=== PATIENT | female | born 1980 | race Caucasian/White ===

== ENCOUNTER 2020-06-06 18:45 | Emergency (ER) | payer OTHER, SELFPAY ==
[2020-06-06] VITALS (7 sets, daily range): BP systolic 128–163; BP diastolic 86–100; PULSE 57–61; RESP 18–26; TEMP 36.4; O2SAT 97–100
--- NOTE | ~2020-06-06 | CT_ITS ---
EXAMINATION: CT abdomen pelvis wo con EXAM DATE: 06/06/2020 19:46 INDICATION: Flank pain. TECHNIQUE: Spiral CT of the abdomen and pelvis was performed without contrast. Axial, coronal and sag ittal images were reviewed. The dose-length product (DLP) for this examination was 327.31 mGy-cm. T he exposure was tailored according to patient size (auto mA exposure control), and iterative reconstr uction (ASIR) was used as additional dose reduction technique. There is no prior study for compariso n. FINDINGS: Punctate bilateral nephrolithiasis. There is a 2 mm stone in the right ureterovesicular tammy ction with mild right hydronephrosis. The uterus is unremarkable. The bladder is unremarkable. Th e liver, spleen, adrenal glands and pancreas are unremarkable. Gallbladder is unremarkable. No bili cameron obstruction. There is no retroperitoneal or pelvic lymphadenopathy. Possible identification of an unremarkable appendix. No pericecal inflammation. The stomach and smal l bowel are unremarkable. There is expected amount of colonic stool. No free intraperitoneal gas. The heart is normal in size. There are no pericardial or pleural effusions. The lung bases are un remarkable. There are no osteoblastic or osteolytic lesions identified. IMPRESSION: 1. Right UVJ 2 mm stone, mild obstructive nephropathy. 2. Punctate bilateral nephrolithiasis. Reviewed, dictated and finalized at location A. JACK WORKER
--- NOTE | 2020-06-06 19:03 | ED.ABDPAIN ---
HPI - Abdominal Pain General Chief Complaint: Abdominal Pain Stated Complaint: back/flank pain Time Seen by Provider: 06/06/20 18:53 Source: patient and family Mode of arrival: ambulatory Limitations: no limitations History of Present Illness HPI narrative: Patient is a 39-year-old female who presents with acute onset of right flank pain with nausea vomiting noting sharp stabbing pain worse with any movement denies similar occurrence on arrival appears uncomfortable but in no distress patient attempted to take medication for her pain but vomited it back up Related Data Allergies Allergy/AdvReac Type Severity Reaction Status Date / Time No Known Allergies Unverified 06/06/20 19:16 Review of Systems Review of Systems: All systems reviewed & are unremarkable except as noted in HPI and below PMFSH Social History Social History (Updated 06/06/20 @ 19:03 by Peter Byrne PA-C) Smoking status: Never smoker Exam Narrative: Exam Narrative: GENERAL: Well-appearing, well-nourished, uncomfortable, and in no acute distress. HEAD: Normocephalic, atraumatic. EYES: PERRLA and EOMI. ENT: Nares clear, no rhinorrhea or epistaxis. Mucous membranes moist. CHEST: Clear to auscultation. No respiratory distress. No wheezes rales or rhonchi HEART: Regular rate and rhythm. No murmur heard. Normal peripheral pulses. ABDOMEN: Soft, nontender, nondistended EXTREMITIES: Normal range of motion. No edema. SKIN: Warm, dry, no rash. NEURO: No focal deficits. Alert and oriented x3. PSYCH: Normal mood and affect. Course Course Emergency Course: Patient evaluated in the emergency department found to have urolithiasis patient came in very uncomfortable with emesis pain is considerably better patient feels comfortable to go home patient with punctate urolithiasis distally felt that this is safe for passage at home will be given urology follow-up afebrile nontoxic-appearing no distress Vital Signs Vital signs: Vital Signs Temperature 97.5 F L 06/06/20 18:55 Pulse Rate 61 06/06/20 18:55 Respiratory Rate 26 H 06/06/20 18:55 Blood Pressure 163/100 H 06/06/20 18:55 Pulse Oximetry 100 06/06/20 18:55 Temperature 97.5 F L 06/06/20 18:55 Pulse Rate 61 06/06/20 18:55 Respiratory Rate 26 H 06/06/20 18:55 Blood Pressure 128/86 06/06/20 20:31 Pulse Oximetry 100 06/06/20 20:45 MDM - Abdominal Pain MDM Narrative Medical decision making narrative: Patient with urolithiasis addressed in the emergency department given hydration and pain medication with improvement of condition feels comfortable to go home will be followed on an outpatient basis Lab Data Result diagrams: 06/06/20 19:06 06/06/20 19:06 Labs: Lab Results 06/06/20 06/06/20 06/06/20 Range/Units 19:06 19:06 19:07 WBC 8.8 (4.5-10.0) K/mm3 RBC 4.18 L (4.2-5.4) M/mm3 Hgb 12.0 (12.0-15.0) g/dL Hct 36.4 L (37.0-47.0) % MCV 87.1 (80-100) fl MCH 28.7 (26-34) pg MCHC 33.0 (32-36) g/dl RDW 13.1 (11.5-14.5) % Plt Count 264 (150-375) k/mm3 MPV 9.5 (7.4-10.4) fl Immature Gran % (Auto) 0.2 (0-0.5) % Neut % (Auto) 53.8 (45.5-73.1) % Lymph % (Auto) 38.2 (18.3-44.2) % [place] % (Auto) 5.3 (2.6-8.5) % Eos % (Auto) 2.0 (0-4.4) % Baso % (Auto) 0.5 (0.2-1.2) % Lymph # (Auto) 3.36 H (0.9-3.2) K/mm3 [place] # (Auto) 0.5 (0.1-0.6) K/mm3 Eos # (Auto) 0.2 (0-0.3) K/mm3 Baso # (Auto) 0.0 (0.0-0.1) K/mm3 Abs Immat Gran (auto) 0.02 (0.00-0.031) K/mm3 Absolute Neuts (auto) 4.7 (1.3-6.7) K/mm3 Absolute Nucleated RBC 0.0 (0.0-0.012) K/mm3 Nucleated RBC % 0.0 (0.0-0.2) % Sodium 140 (137-145) mmol/L Potassium 3.6 (3.4-5.0) mmol/L Chloride 101 (98-107) mmol/L Carbon Dioxide 27 (22-30) mmol/L Anion Gap 12 (8-16) mmol/L BUN 16 (7-17) mg/dL Creatinine 0.70 (0.7-1.0) mg/dL Estim Creat Clear Calc 108 ml/min
[2020-06-06] MEDS: FAMOTIDINE 20 MG/2 ML VIAL IV PUSH (19:11)
[2020-06-06] MEDS: ONDANSETRON INJ 4 MG/2 ML VIAL IV PUSH (19:12)
[2020-06-06] MEDS: SODIUM CHLORIDE 0.9% IV 1,000 ML 999 ML IV CONT (19:12)
[2020-06-06] MEDS: MORPHINE SULFATE (*CRX) 4 MG/ML INJ IV PUSH (19:12)
[2020-06-06 19:16] LABS: Basophils Percent Auto 0.5 % (0.2-1.2); Eosinophils Absolute Auto 0.2 K/mm3 (0-0.3); Hematocrit 36.4 % (37.0-47.0); Immature Granulocyte Absolute 0.02 K/mm3 (0.00-0.031); Immature Granulocyte Percent A 0.2 % (0-0.5); Lymphocytes Absolute Auto 3.36 K/mm3 (0.9-3.2); Lymphocytes Percent Auto 38.2 % (18.3-44.2); Mean Corpuscular Hemoglobin 28.7 pg (26-34); Mean Corpuscular Volume 87.1 fl (80-100); Mean Platelet Volume 9.5 fl (7.4-10.4); Monocytes Absolute Auto 0.5 K/mm3 (0.1-0.6); Monocytes Percent Auto 5.3 % (2.6-8.5); Neutrophils Absolute Auto 4.7 K/mm3 (1.3-6.7); Neutrophils Percent Auto 53.8 % (45.5-73.1); Platelet Count Result 264 k/mm3 (150-375); Red Blood Count 4.18 M/mm3 (4.2-5.4); Red Cell Distribution Width 13.1 % (11.5-14.5); White Blood Count 8.8 K/mm3 (4.5-10.0)
[2020-06-06 19:23] LABS: Add Urine Microscopic? YES; Appearance Urine Cloudy (Clear); Bacteria Urine Trace /hpf; Bilirubin Urine Negative (Negative); Blood Urine 3+ (Negative); Color Urine Yellow (Yellow); Glucose Urine UA Negative (Negative); Ketones Urine Trace mg/dL (Negative); Leukocyte Esterase Ur Trace LEU/UL (Negative); Mucus Urine Rare /lpf; Nitrate Urine Negative (Negative); Protein Urine 2+ mg/dL (Negative); RBC Urine >75 /hpf (0-2); Specific Grav Ur 1.021 (1.001-1.035); Squamous Epithelial Cell Urine Many /hpf (Few); Urobilinogen Urine Negative mg/dL (<2.0)
[2020-06-06 19:28] LABS: Alanine Aminotransferase 13 U/L (4-35); Albumin Level 4.5 g/dL (3.5-5.1); Alkaline Phosphatase 41 U/L (38-126); Anion Gap 12 mmol/L (8-16); Aspartate Amino Transferase 24 U/L (14-36); Bilirubin,Total 0.3 mg/dL (0.2-1.3); Blood Urea Nitrogen 16 mg/dL (7-17); Calcium 9.1 mg/dL (8.4-10.2); Carbon Dioxide 27 mmol/L (22-30); Chloride 101 mmol/L (98-107); Estimated CRCL calculation 108 ml/min; Estimated Glomerular Filt Rate > 60; Glucose 119 mg/dL (65-105); Lipase 108 U/L (23-300); Potassium 3.6 mmol/L (3.4-5.0); Sodium 140 mmol/L (137-145)
--- NOTE | 2020-06-06 19:36 | PC.NURSE ---
Patient being taken to radiology.
[2020-06-06] MEDS: HYDROmorphone HCL INJ (*CRX) 1 MG/ML SYR (19:58)
[2020-06-06] MEDS: KETOROLAC 30 MG/ML VIAL (*BKC) IV PUSH (19:59)
[2020-06-06] MEDS: SODIUM CHLORIDE 0.9% IV 1,000 ML 999 ML (21:05)
== END 2020-06-06 21:27 | disposition home or self-care (01) ==
PROVIDERS: Emergency Medicine Emergency Medical Services; Emergency Provider Emergency Medicine; PCP Family Medicine
DX: N13.8 Other obstructive and reflux uropathy (principal); N20.2 Calculus of kidney with calculus of ureter
CPT/HCPCS: 36415; 74176; 80053; 81001; 81025; 83690; 85025; 87086; 96361; 96374; 96375; 99284; J1170; J1885; J2270; J2405; J7030

== ENCOUNTER 2020-12-06 09:38 | Outpatient (CLI) | payer OTHER, SELFPAY ==
--- NOTE | ~2020-12-06 | XR_ITS ---
XR abdomen/kub 1V 12/06/2020 09:52 Indication: Kidney stones Procedure: KUB Comparison: No prior studies for comparison. Findings: Bowel gas pattern is nonobstructive. Moderate colonic fecal loading. No abnormal calcificat ions are identified overlying the kidneys, although they are obscured by bowel content. No acute osse ous abnormality. Impression: 1: No acute abdominal abnormality. Reviewed, dictated and finalized at location B. Impression: 1: No acute abdominal abnormality.
== END 2020-12-06 09:39 | disposition home or self-care (01) ==
LOC: ANHIMG 09:42
PROVIDERS: PCP Family Medicine; Visit Provider Urology
DX: N20.0 Calculus of kidney (principal)
CPT/HCPCS: 74018

== ENCOUNTER → 2023-07-09 15:23 | Outpatient (CLI) | payer OTHER, SELFPAY ==
--- NOTE | ~2023-07-09 | MM_ITS ---
EXAMINATION: MM screening [facility] BI w dianna HISTORY: Baseline screening mammogram TECHNIQUE: Craniocaudal and mediolateral oblique 3-D tomosynthesis images were obtained and synthetic 2-D images were generated. CAD analysis was submitted and interpreted. COMPARISON: None, baseline BREAST PARENCHYMAL COMPOSITION: The breasts are heterogeneously dense, which may obscure small masses . FINDINGS: No suspicious mass, calcification, or architectural distortion are identified in either phuong ast to suggest malignancy. IMPRESSION: 1. No mammographic evidence of malignancy. 2. Recommend routine screening mammography in one year. BI-RADS Category 1: Negative Reviewed, dictated and finalized at location A. ECTIONS ANALYST
== END ==
PROVIDERS: PCP Internal Medicine; Visit Provider Internal Medicine
DX: Z12.31 Encounter for screening mammogram for malignant neoplasm of breast (principal)
CPT/HCPCS: 77063; 77067